=== PATIENT | female | born 1985 | race African-American/Black ===

== ENCOUNTER 2017-09-18 08:15 | Emergency (ER) | payer MEDICAID, OTHER ==
[~2017-09-18] VITALS: Ht 167.6 cm; Wt 71.0 kg
[2017-09-18 11:21] LABS: BASOPHILS % 0.5 % (0.0-2.0); EOSINOPHILS % 0.8 % (0.0-5.0); HEMATOCRIT. 43.8 % (36.0-48.0); LYMPHOCYTES % 7.9 % (20.0-50.0); MEAN CORPUSCULAR HEMOGLOBIN 29.7 pg (28.0-32.0); MEAN CORPUSCULAR VOLUME 86.3 fL (81.0-99.0); MEAN PLATELET VOLUME 7.6 fl (7.4-10.4); MONOCYTES % 7.6 % (2.0-8.0); NEUTROPHILS % 83.2 % (40.0-76.0); PLATELET 417 x1000/uL (130-400); RED BLOOD CELL COUNT 5.07 mill/uL (4.2-5.4); RED CELL DISTRIBUTION WIDTH 13.4 % (11.6-14.6)
[2017-09-18 11:24] LABS: CLARITY URINE TURBID (CLEAR); COLOR URINE DARK YELLOW (YELLOW); KETONES URINE 1+ (NEGATIVE); LEUKOCYTE ESTERASE URINE 1+ (NEGATIVE); NITRITE URINE NEGATIVE (NEGATIVE); OCCULT BLOOD URINE 3+ (NEGATIVE); PROTEIN URINE 2+ (NEGATIVE); SPECIFIC GRAVITY URINE 1.041 (1.005-1.030)
[2017-09-18] MEDS ORDERED: SODIUM CHLORIDE 0.9% 1,000 ML IV ONE (11:36)
[2017-09-18] MEDS ORDERED: ONDANSETRON HCL 4MG/2ML VIAL IV STA (11:36)
[2017-09-18] MEDS ORDERED: KETOROLAC 30MG/ML VIAL IV STA (11:36)
[2017-09-18 11:49] LABS: CARBON DIOXIDE 29 mEq/L (21-32); CHLORIDE 104 mEq/L (98-107)
[2017-09-18 12:04] VITALS: BP 149/98
[2017-09-18] MEDS ORDERED: VISCOUS LIDOCAINE 2% 15 ML UDC PO STA (12:29)
[2017-09-18] MEDS ORDERED: MAGNESIUM/ALUMINUM HYDROXIDE/SIMETHICONE 30ML UDC PO STA (12:29)
[2017-09-18] MEDS ORDERED: FAMOTIDINE 20MG/2ML VIAL IV ONE (12:30)
== END 2017-09-18 13:50 | disposition home or self-care (01) ==
LOC: ER 08:15
DX: N39.0 Urinary tract infection, site not specified (principal); R11.2 Nausea with vomiting, unspecified; R05 Cough; F12.10 Cannabis abuse, uncomplicated; F15.10 Other stimulant abuse, uncomplicated
CPT/HCPCS: 36415; 76705; 80053; 81001; 81025; 83690; 85025; 96374; 96375; 99285; J1885; J2405; J3490; J7030

== ENCOUNTER 2018-08-29 02:59 | Inpatient (IN) | payer SELFPAY ==
[~2018-08-29] VITALS: Ht 165.1 cm; Wt 71.2 kg
[2018-08-29] MEDS ORDERED: ONDANSETRON HCL 4MG/2ML INJ IV STA (04:30)
[2018-08-29] MEDS ORDERED: KETOROLAC 30MG/ML VIAL IV STA (04:30)
[2018-08-29 05:41] LABS: EOSINOPHILS % 0.6 % (0.0-5.0); HEMATOCRIT. 36.4 % (36.0-48.0); HEMOGLOBIN. 12.3 g/dL (12.0-16.0); LYMPHOCYTES % 17.8 % (20.0-50.0); MEAN CORPUSCULAR HEMOGLOBIN 29.5 pg (28.0-32.0); MEAN CORPUSCULAR VOLUME 87.7 fL (81.0-99.0); MEAN PLATELET VOLUME 7.8 fl (7.4-10.4); NEUTROPHILS % 76.6 % (40.0-76.0); PLATELET 403 x1000/uL (130-400); RED BLOOD CELL COUNT 4.16 mill/uL (4.2-5.4); RED CELL DISTRIBUTION WIDTH 13.8 % (11.6-14.6)
[2018-08-29 05:43] LABS: CHLORIDE 105 mEq/L (98-107); INR 1.1; PROTHROMBIN TIME 10.9 sec (9.1-11.1)
[2018-08-29] MEDS ORDERED: MAGNESIUM/ALUMINUM HYDROXIDE/SIMETHICONE 30ML UDC PO ONE (05:45)
[2018-08-29 05:58] LABS: CLARITY URINE TURBID (CLEAR); COLOR URINE YELLOW (YELLOW); KETONES URINE NEGATIVE (NEGATIVE); LEUKOCYTE ESTERASE URINE 1+ (NEGATIVE); NITRITE URINE NEGATIVE (NEGATIVE); OCCULT BLOOD URINE NEGATIVE (NEGATIVE); PH URINE 7.5 (4.5-8.0); PROTEIN URINE NEGATIVE (NEGATIVE); SPECIFIC GRAVITY URINE 1.022 (1.005-1.030); UROBILINOGEN URINE 0.2 E.U./dL (0.2-1.0)
[2018-08-29] MEDS ORDERED: ONDANSETRON HCL 4MG/2ML INJ IV ONE ×2 (06:00→07:15)
[2018-08-29] MEDS ORDERED: SODIUM CHLORIDE 0.9% 1,000 ML IV ONE ×2 (06:21→10:15)
[2018-08-29] MEDS ORDERED: METOCLOPRAMIDE HCL 10MG/2ML VIAL IV STA (06:21)
[2018-08-29] MEDS ORDERED: MORPHINE SULFATE 4 MG/ML CPJ (NOT FOR IM USE) IV ONE ×2 (06:30→09:45)
[2018-08-29] MEDS ORDERED: IOHEXOL-300 100 ML BOTTLE ONE (07:09)
[2018-08-29] MEDS ORDERED: METOCLOPRAMIDE HCL 10MG/2ML VIAL IV ONE (09:15)
[2018-08-29] MEDS ORDERED: CEFTRIAXONE 1 G PREMIX 50 ML IV ONE (10:30)
[2018-08-29 15:46] VITALS: BP 159/94
[2018-08-29 16:00] VITALS: BP 159/94
[2018-08-29] MEDS ORDERED: LORAZEPAM 2MG/ML CPJ IV PRN ×2 (17:00→18:15)
[2018-08-29] MEDS ORDERED: ACETAMINOPHEN 325MG TABLET PO PRN (17:00)
[2018-08-29] MEDS ORDERED: CLONIDINE 0.1MG TABLET PO PRN (17:00)
[2018-08-29] MEDS ORDERED: DEXT 5%/0.45% NACL 1000ML 1,000 ML IV SCH ×2 (17:00→18:00)
[2018-08-29] MEDS: KETOROLAC 30MG/ML VIAL IV PRN (18:40)
[2018-08-29] MEDS: SODIUM CHLORIDE 0.9% 1,000 ML IV SCH (18:41)
[2018-08-29] MEDS: ONDANSETRON HCL 4MG/2ML INJ IV PRN ×2 (18:41→22:23)
[2018-08-29 20:00] VITALS: BP 110/68
[2018-08-29] MEDS: LEVOFLOXACIN 500MG PREMIX 100 ML IV SCH (20:58)
[2018-08-29] MEDS: PANTOPRAZOLE SODIUM 40 MG/VIAL IV SCH (20:59)
[2018-08-29] MEDS ORDERED: FAMOTIDINE 20MG/2ML VIAL IV SCH (21:00)
[2018-08-29] MEDS: METRONIDAZOLE 500 MG PREMIX 100 ML IV SCH (22:12)
[2018-08-29] MEDS: HYDROMORPHONE HCL/PF 2MG/ML CPJ IV PRN (22:23)
[2018-08-30] VITALS: BP_SYST 112; BP_SYST 118; BP_DIAS 67; BP_DIAS 71
[2018-08-30] MEDS: SODIUM CHLORIDE 0.9% 1,000 ML IV SCH ×4 (00:45→21:06)
[2018-08-30 04:00] VITALS: BP 112/67
[2018-08-30] MEDS: METRONIDAZOLE 500 MG PREMIX 100 ML IV SCH ×3 (05:33→21:05)
[2018-08-30] MEDS ORDERED: IBUP1TAB69 PO (06:02)
[2018-08-30 07:29] LABS: HEMATOCRIT. 35.8 % (36.0-48.0); HEMOGLOBIN. 11.9 g/dL (12.0-16.0); MEAN CORPUSCULAR HEMOGLOBIN 29.3 pg (28.0-32.0); MEAN CORPUSCULAR VOLUME 87.9 fL (81.0-99.0); MEAN PLATELET VOLUME 7.6 fl (7.4-10.4); PLATELET 388 x1000/uL (130-400); RED BLOOD CELL COUNT 4.08 mill/uL (4.2-5.4)
[2018-08-30 07:44] LABS: CHLORIDE 103 mEq/L (98-107)
[2018-08-30 07:59] LABS: PHOSPHORUS 2.5 mg/dL (2.5-4.9)
[2018-08-30 08:00] VITALS: BP 126/92
[2018-08-30] MEDS: PANTOPRAZOLE SODIUM 40 MG/VIAL IV SCH ×2 (08:50→20:53)
[2018-08-30] MEDS ORDERED: MAGNESIUM 1 G PREMIX 100 ML IV SCH (11:00)
[2018-08-30] MEDS ORDERED: POTASSIUM CHLORIDE INJ 40 MEQ in DEXT 5% WATER 500 ML IV SCH (11:00)
[2018-08-30] MEDS: KETOROLAC 30MG/ML VIAL IV PRN ×2 (11:30→21:03)
[2018-08-30 12:00] VITALS: BP 120/80
[2018-08-30 13:54] LABS: PLATELET ESTIMATE NORMAL
[2018-08-30 14:46] LABS: UCG SCREEN NEGATIVE
[2018-08-30 15:07] LABS: METHADONE URINE SCREEN NEGATIVE (NEGATIVE)
[2018-08-30 15:08] LABS: *BARBITURATES SCREEN URINE NEGATIVE (NEGATIVE); *COCAINE SCREEN URINE NEGATIVE (NEGATIVE); PHENCYCLIDINE URINE SCREEN NEGATIVE (NEGATIVE)
[2018-08-30 15:29] LABS: CANNABINOID URINE SCREEN PRESUMTIVE POSITIVE (NEGATIVE); OPIATES URINE SCREEN PRESUMTIVE POSITIVE (NEGATIVE)
[2018-08-30 15:37] LABS: *AMPHETAMINES SCREEN URINE NEGATIVE (NEGATIVE); *BENZODIAZEPINES SCREEN URINE NEGATIVE (NEGATIVE)
[2018-08-30 16:00] VITALS: BP 132/82
[2018-08-30] MEDS: HYDROMORPHONE HCL/PF 2MG/ML CPJ IV PRN (16:37)
[2018-08-30] MEDS: LEVOFLOXACIN 500MG PREMIX 100 ML IV SCH (18:12)
[2018-08-30] MEDS: ONDANSETRON HCL 4MG/2ML INJ IV PRN (18:56)
[2018-08-30 20:00] VITALS: BP 108/77
[2018-08-31] VITALS: BP 140/75
[2018-08-31] MEDS: SODIUM CHLORIDE 0.9% 1,000 ML IV SCH ×2 (02:39→11:38)
[2018-08-31] MEDS: HYDROMORPHONE HCL/PF 2MG/ML CPJ IV PRN ×2 (02:39→09:34)
[2018-08-31 04:00] VITALS: BP 113/77
[2018-08-31] MEDS: METRONIDAZOLE 500 MG PREMIX 100 ML IV SCH ×2 (05:31→13:54)
[2018-08-31] MEDS: KETOROLAC 30MG/ML VIAL IV PRN (05:41)
[2018-08-31 08:00] VITALS: BP 131/88
[2018-08-31] MEDS: ONDANSETRON HCL 4MG/2ML INJ IV PRN (08:03)
[2018-08-31] MEDS: PANTOPRAZOLE SODIUM 40 MG/VIAL IV SCH (09:29)
[2018-08-31 09:34] VITALS: BP 131/88
[2018-08-31] MEDS ORDERED: POTASSIUM CHLORIDE 20MEQ TABLET SR PO NR (11:00)
[2018-08-31] MEDS ORDERED: POTASSIUM CHLORIDE INJ 40 MEQ in DEXT 5% WATER 500 ML IV NR (13:00)
== END 2018-08-31 19:20 | disposition home or self-care (01) | DRG 249 ==
LOC: ER 02:59 → 6EST 14:08 → EDBEDREQ 14:10 → EDBEDREQTM 14:10 → ENRESERV 14:57
PROVIDERS: ADMIT Internal Medicine; ATTEND Internal Medicine
DX: K52.9 Noninfective gastroenteritis and colitis, unspecified (principal); F06.4 Anxiety disorder due to known physiological condition; J45.909 Unspecified asthma, uncomplicated
CPT/HCPCS: 36415; 74177; 76830; 76856; 80051; 80305; 81025; 83735; 84100; 87210; 87491; 87591; 96374; 96375; 99285; C9113; J0696; J1170; J1885; J1956; J2060; J2270; J2405; J2765; J3475; J3480; J3490; J7030; J7060; Q9967

== ENCOUNTER 2018-11-08 09:47 | Emergency (ER) | payer MEDICAID, OTHER ==
[~2018-11-08] VITALS: Ht 165.1 cm; Wt 65.0 kg
[~2018-11-08 09:47] MED LIST: IBUP1TAB69 PO
[2018-11-08 10:00] VITALS: BP 130/80
== END 2018-11-08 15:08 | disposition left against medical advice (07) ==
LOC: ER 09:53
DX: R10.9 Unspecified abdominal pain (principal); Z53.21 Procedure and treatment not carried out due to patient leaving prior to being seen by health care provider